=== PATIENT | male | born 1990 | race Caucasian/White ===

== ENCOUNTER 2018-04-08 01:35 | Emergency (ER) | payer MEDICAID ==
[~2018-04-08] VITALS: Ht 177.8 cm; Wt 94.5 kg
[2018-04-08 02:45] LABS: microscopic required? NO
[2018-04-08 02:56] LABS: UA SPECIFIC GRAVITY 1.015 (1.005-1.035); urine erythrocyte NEGATIVE (NEGATIVE)
[2018-04-08 05:03] VITALS: BP 119/56
== END 2018-04-08 05:03 | disposition home or self-care (01) ==
LOC: ED 01:35
PROVIDERS: Emergency Medicine
DX: R10.9 Unspecified abdominal pain (principal); M54.9 Dorsalgia, unspecified
CPT/HCPCS: Q0092